=== PATIENT | male | born 1955 | race Caucasian/White ===

== ENCOUNTER → 2017-03-09 | Outpatient (CLI) | payer BC | END | disposition home or self-care (01) | LOC: MW.RT 19:44 | PROVIDERS: ATTEND Emergency Medicine | DX: G47.30 Sleep apnea, unspecified (principal); G47.19 Other hypersomnia; Z68.42 Body mass index [BMI] 45.0-49.9, adult | CPT/HCPCS: 95811 ==

== ENCOUNTER 2017-04-02 19:37 | Emergency (ER) | payer BC ==
--- NOTE | 2017-04-02 21:23 | EDM.PDOC ---
ED HPI EYE COMPLAINT - General Chief Complaint: Eye Problems Stated Complaint: PAIN/BLEEDING LT EYE Time Seen by Provider: 04/02/17 19:52 Source: Reports: Patient History Limitations: Reports: No limitations - History of Present Illness INITIAL COMMENTS - FREE TEXT/NARRATIVE: HISTORY AND PHYSICAL: History of present illness: [61-year-old male with a history of diabetic retinopathy treated multiple times by development representative Dr. Paris now presents emergent [facility] complaining of blurriness in his mid visual field in the left eye onset earlier today patient was fishing elevate when he experienced ounces blurriness. 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 Paris for a period is loss of vision has been stable. Peripherally in the left eye he does have good visual acuity at his baseline but he continues to be blurriness Center. Vision loss was never like a window shade being pulled down. He has no pain no redness no discharge and no headache. She did not call the development representative prior to coming to the emergency] Review of systems: As per history of present illness and below otherwise all systems reviewed and negative. Past medical history: As per history of present illness and as reviewed below otherwise noncontributory. Surgical history: As per history of present illness and as reviewed below otherwise noncontributory. Social history: No reported history of drug or alcohol abuse. Family history: As per history of present illness and as reviewed below otherwise noncontributory. Physical exam: Bilateral eyes with reactive pupils normal appearing no injection normal anterior chambers subtotal visualization of left funduscopic exam due to constricted pupil. Patient states her right is at baseline vision in left eye as previously stated a soft baseline. HEENT: Atraumatic, normocephalic, pupils reactive, negative for conjunctival pallor or scleral icterus, mucous membranes moist, throat clear, neck supple, nontender, trachea midline. Lungs: Clear to auscultation, breath sounds equal bilaterally, chest nontender. Heart: S1S2, regular, negative for clicks, rubs, or JVD. Abdomen: Soft, nondistended, nontender. Negative for masses or hepatosplenomegaly. Negative for costovertebral tenderness. Pelvis: Stable nontender. Genitourinary: Deferred. Rectal: Deferred. Extremities: Atraumatic, negative for cords or calf pain. Neurovascular unremarkable. Neuro: Awake, alert, oriented. Cranial nerves II through XII unremarkable. Cerebellum unremarkable. Motor and sensory unremarkable throughout. Exam nonfocal. Diagnostics: [] Therapeutics: [] Impression: [] Plan: [Signs and symptoms consistent with visual loss a patient with a known extensive ophthalmologic history of problems with his left eye including prior bleeds. Case discussed with patient's development representative Dr. Paris is aware of history and findings and states it's very clear that no acute interventions need to be made and an outpatient followup is appropriate. Dr. Paris will be available to discuss the case with this patient this weekend if he has any concerns or reservations. Take followup with the patient in his office on Wednesday but as mentioned be available for the patient prior to that time as well] . Patient stable symptoms clearly confined to the left eye and consistent with the patient's prior history no evidence of CVA TIA or focal neurologic deficit otherwise. She agrees with outpatient followup and is grateful for my for with his development representative. Strict return precautions given Definitive disposition and diagnosis as appropriate pending reevaluation and review of above. - Related Data Allergies/ADRs: Allergies No Known Allergies Allergy (Verified 04/02/17 19:54) Home Meds: Ambulatory Orders Medication Instructions Recorded Confirmed Aspirin 325 mg PO DAILY 09/16/15 04/02/17 Insulin Glargine,Hum.Rec.Anlog 75 units SQ BEDTIME 09/16/15 04/02/17 [T[place]ao Solostar] Ramipril [Altace] 10 mg PO DAILY 09/16/15 04/02/17 atorvaSTATin Calcium [Atorvastatin 5 mg PO DAILY 09/16/15 04/02/17 Calcium] metFORMIN HCl [Metformin HCl] 1,000 tab PO BIDMEALS 09/16/15 04/02/17 Insulin Aspart [NovoLOG] 30 units SUBCNJ TID 04/02/17 04/02/17 Past Medical History Other Respiratory History: reports possible sleep apnea, she feels he has symptoms, not been tested Other Gastrointestinal History: OTC on occasion for symptoms of heartburn or reflux, unsure which product he uses Other Psychiatric History: denies diagnosis here, but reports he has a lot of stress and this is apparant to her at times Other Endocrine/Metabolic History: Type II insulin dependent diabetes - Past Surgical History Other GI Surgeries/Procedures: History of EGD for retrieval foreign body, hx: Flexible sigmoidoscopy Social & Family History - Tobacco Use Smoking Status *Q: Former Smoker Years of Tobacco use: 8 - Recreational Drug Use Recreational Drug Use: No Drug Use in Last 12 Months: No ED ROS GENERAL - Review of Systems Review Of Systems: See Below (History of present illness) ED EXAM GENERAL W FULL EYE - Physical Exam Exam: See Below (History of present illness) Course - Vital Signs Last Recorded V/S: Last Vital Signs Temp 37.4 C 04/02/17 21:30 Pulse 74 04/02/17 21:30 Resp 16 04/02/17 21:30 BP 127/57 L 04/02/17 21:30 Pulse Ox 99 04/02/17 21:30 Departure - Departure Time of Disposition: 21:18 Disposition: Home, Self-Care 01 Condition: good Clinical Impression: Visual changes Instructions: Eye Floaters Referrals: PCP,None [Primary Care Provider] - Forms: ED Department Discharge Additional Instructions: Her case was discussed today with your development representative Dr. Paris. He is aware of the history and findings and recommends followup with him in the office on Wednesday. If there any changes in your clinical status or if you have any concerns this weekend he would be happy to be contacted directly by you. Either call the office number and his on-call number or call the hospital drop hammer pile driver operator and he can contact him for you.
[2017-04-02 22:00] VITALS: BP 127/57
== END 2017-04-02 21:31 | disposition home or self-care (01) ==
LOC: MW.ED 19:37
DX: H53.9 Unspecified visual disturbance (principal); E11.9 Type 2 diabetes mellitus without complications; Z79.4 Long term (current) use of insulin; Z79.82 Long term (current) use of aspirin; Z79.899 Other long term (current) drug therapy; Z87.891 Personal history of nicotine dependence
CPT/HCPCS: 99282; 99283

== ENCOUNTER 2022-12-09 06:47 | Day surgery (SDC) | payer MEDICARE, OTHER ==
[~2022-12-09 06:47] MED LIST: Lactated Ringers 1,000 ML IV SCH
[2022-12-09] MEDS ORDERED: Midazolam 1 MG/ML 2 ML SDV ONE (07:33)
[2022-12-09] MEDS ORDERED: Propofol 200 MG/20 ML SDV ONE ×2 (07:33→08:32)
[2022-12-09] MEDS ORDERED: Ketamine 500 mg/10 ML MDV ONE (07:39)
[2022-12-09] MEDS ORDERED: fentaNYL 100 MCG/2 ML SDV ONE (08:09)
[2022-12-09] MEDS ORDERED: ePHEDrine 50 MG/ML SDV ONE ×2 (08:34→08:43)
[2022-12-09] MEDS ORDERED: Glycopyrrolate 0.2 MG/ML SDV ONE (08:34)
[2022-12-09 09:53] VITALS: BP 108/58; PULSE 98
== END 2022-12-09 09:30 | disposition home or self-care (01) ==
LOC: MW.SDS 06:47
PROVIDERS: ATTEND Surgery
DX: Z12.11 Encounter for screening for malignant neoplasm of colon (principal); K57.30 Diverticulosis of large intestine without perforation or abscess without bleeding; D12.2 Benign neoplasm of ascending colon; D12.3 Benign neoplasm of transverse colon; I10 Essential (primary) hypertension; E11.9 Type 2 diabetes mellitus without complications; E66.9 Obesity, unspecified; E78.00 Pure hypercholesterolemia, unspecified; G47.33 Obstructive sleep apnea (adult) (pediatric); Z79.4 Long term (current) use of insulin; Z86.010 Personal history of colon polyps; Z68.42 Body mass index [BMI] 45.0-49.9, adult; Z79.899 Other long term (current) drug therapy; Z79.82 Long term (current) use of aspirin; Z79.84 Long term (current) use of oral hypoglycemic drugs; Z98.890 Other specified postprocedural states; Z87.891 Personal history of nicotine dependence
CPT/HCPCS: 45380; 82947; J2250; J2704; J3010; J3490; J7120